=== PATIENT | male | born 1960 | race Two or more races ===

== ENCOUNTER 2021-01-10 11:41 | Inpatient (IN) | payer OTHER ==
[~2021-01-10] VITALS: Ht 182.9 cm; Wt 88.0 kg
[~2021-01-10 11:41] MED LIST: FISH OIL1 CAP PO
[2021-01-11] MEDS ORDERED: FLONASE16 GM (15:08)
[2021-01-11] MEDS ORDERED: PROAIR HFA8.5 GM ×2 (15:08→15:13)
[2021-01-11] MEDS ORDERED: VITAMIN D3250 MCG (15:09)
[2021-01-11] MEDS ORDERED: ST. JOSEPH ASPI81 M2 (15:09)
[2021-01-11] MEDS ORDERED: PROAIR RESPICL90 MCG (15:10)
[2021-01-15] MEDS ORDERED: BENZONATATE200 M1 PO (16:26)
[2021-01-15] MEDS ORDERED: ZITHROMAX500 MG PO (16:26)
[2021-01-15] MEDS ORDERED: MEDROLPACK PO (16:26)
[2021-01-15] MEDS ORDERED: MONTELUKAST SOD10 MG PO (16:26)
[2021-01-15] MEDS ORDERED: LORATADINE10 MG PO (16:26)
[2021-01-15] MEDS ORDERED: INTESTINEX680 M1 PO (16:26)
== END 2021-01-15 16:33 | disposition home or self-care (01) | DRG 195 ==
LOC: ER 11:41 → MEDI 01-11 14:24
PROVIDERS: ADMIT Internal Medicine; ATTEND Internal Medicine
PROC: 4A033R1 Measurement of Arterial Saturation, Peripheral, Percutaneous Approach (ICD-10-PCS; principal; 2021-01-10)
PROC: 3E0F7SF Introduction of Other Gas into Respiratory Tract, Via Natural or Artificial Opening (ICD-10-PCS; 2021-01-11)
DX: J18.9 Pneumonia, unspecified organism (principal); Z20.822 Contact with and (suspected) exposure to COVID-19; R09.02 Hypoxemia; A37.91 Whooping cough, unspecified species with pneumonia
CPT/HCPCS: 71275